=== PATIENT | male | born 1960 | race Caucasian/White ===

== ENCOUNTER → 2021-03-12 | Day surgery (SDC) | payer OTHER ==
[~2021-03-12] MED LIST: ATOR10TA60 PO; IPRATRPIUM/ALBUTEROL 0.5/2.5MG 3 ML NEBU. NEB PRN; IV RINGERS SOLUTION,LACTATED 1,000 ML IV SCH; LIDOCAINE 2% PF 5 ML VIAL. ONE; LISI20TA18 PO; MIDAZOLAM HCL PF 2 MG/2 ML VIAL. IV ONE; ONDANSETRON PF 4 MG/2 ML VIAL. IV PRN; PROPOFOL 10,000 MCG/ML (20ML) VIAL IV ONE
[2021-03-12 13:44] VITALS: BP 130/72
--- NOTE | 2021-03-16 16:13 | PATHOLOGY ---
[facility] Accession Number: [id number] . 01 Material submitted: . PART A: sigmoid colon - SIGMOID POLYP PART B: colon - DESCENDING COLON POLYP BIOPSY. Modifiers: descending PART C: rectum - RECTAL POLYP PART D: sigmoid colon - SIGMOID COLON POLYP BIOPSY . 01 Clinical history: . FAMILY HX COLON CA, COLONOSCOPY . 02 Diagnosis: A. Colonic mucosa, sigmoid polyp: - Serrated adenoma. . B. Colonic mucosa, descending colon polyp biopsy and polyp: - Hyperplastic polyps. . C. Colorectal mucosa, rectal polyp: - Tubular adenoma. . D. Colonic mucosa, sigmoid colon polyp biopsy: - Prominent mucosal fold with mucosal-associated lymphoid aggregate. . ([facility]:[place]; 03/16/2021) [facility] 03/16/2021 1350 Local . 02 Comment: There is no high-grade dysplasia or evidence of malignancy. ([facility]LGAM:[place]; 03/16/2021) . 02 Electronically signed: . Conor Jain MD, Pathologist NPI- [id number] . 01 Gross description: . A. The specimen is received in formalin, labeled "Louie Myrick, sigmoid polyp". Received is an irregular segment of brown-noguera, polypoid tissue measuring 1.3 x 1.0 x 0.9 cm in greatest dimensions. The surgical margin is inked. The specimen is sectioned into 3 pieces and entirely submitted in cassette A1. During sectioning, fragmentation has occurred. . B. The specimen is received in formalin, labeled "Myrick Louie, descending colon polyp BX and polyp". Received are multiple fragments of pale strong tissue ranging in size from 0.2-0.6 cm in maximum dimensions. The specimen is entirely submitted in cassette B1. . C. The specimen is received in formalin, labeled "Louie Myrick, rectal polyp". Received is a single segment of pale strong, polypoid tissue measuring 0.8 cm in greatest dimensions. The surgical margin is inked. The specimen is bisected and entirely submitted in cassette C1. During sectioning, fragmentation has occurred. . D. The specimen is received in formalin, labeled "Louie Myrick, sigmoid colon polyp BX". Received are 2 segments of pale strong tissue measuring 0.3 and 0.5 cm in maximum dimensions. The specimen is entirely submitted in cassette D1. ([facility]; 03/15/2021) NRI/NRI 03/15/2021 1622 Local . 02 Pathologist provided ICD-10: D12.5, K63.5, D12.8, Z86.010, Z12.11 . 02 CPT . 970416, 254093, 155492, 640706 Specimen Comment: A courtesy copy of this report has been sent to [phone] Specimen Comment: Report sent to Specimen Comment: A duplicate report has been generated due to demographic updates. Performed at: 01 [facility] [address], [place] [id number] MD Tyson Del Valle MD Phone: [phone] Performed at: 02 [facility] [address] [place], [place] [id number] MD Conor Jain MD Phone: [phone]
== END | disposition home or self-care (01) ==
LOC: SURG 10:32
PROVIDERS: ATTEND Internal Medicine Gastroenterology
DX: Z12.11 Encounter for screening for malignant neoplasm of colon (principal); D12.5 Benign neoplasm of sigmoid colon; D12.8 Benign neoplasm of rectum; K63.89 Other specified diseases of intestine; Z86.010 Personal history of colon polyps; Z87.891 Personal history of nicotine dependence; Z79.899 Other long term (current) drug therapy; Z98.890 Other specified postprocedural states; Z72.89 Other problems related to lifestyle
CPT/HCPCS: 45380; 45381; 45385; 88305; J2001; J2704; J7120

== ENCOUNTER 2021-04-16 09:52 | Emergency (ER) | payer OTHER ==
[~2021-04-16] VITALS: Ht 177.8 cm; Wt 79.0 kg
[~2021-04-16 09:52] MED LIST changes: -IPRATRPIUM/ALBUTEROL 0.5/2.5MG 3 ML NEBU. NEB PRN; -IV RINGERS SOLUTION,LACTATED 1,000 ML IV SCH; -LIDOCAINE 2% PF 5 ML VIAL. ONE; -MIDAZOLAM HCL PF 2 MG/2 ML VIAL. IV ONE; -ONDANSETRON PF 4 MG/2 ML VIAL. IV PRN; -PROPOFOL 10,000 MCG/ML (20ML) VIAL IV ONE
--- NOTE | 2021-04-16 10:01 | PHYS DOC ---
Adult General HPI HPI Patient is a 60-year-old male presenting via POV for a fall. Reports he slipped and fell on the ice suffering obvious deformity to left ankle prompting him to come in. Motor or sensory neuro function intact but reports 10 out of 10 pain with obvious bony deformity that is closed in nature. States he has history of high blood pressure which he takes medications for, no other medical issues reported. Not on any blood thinners. No prior history of any left lower extremity abnormalities or surgical intervention Review of Systems Review of Systems Fourteen body systems of review of systems have been reviewed. See HPI for pertinent positives and negative responses, other bowser all other systems are negative, non-pertinent or non-contributory Allergies Allergies Allergies Coded Allergies Type Severity Reaction Last Updated Verified No Known Drug Allergies 03/12/21 No Physical Exam Physical Exam Constitutional: Well developed, well nourished, moderate distress due to pain HENT: Normocephalic, atraumatic, bilateral external ears normal, oropharynx moist, no oral exudates, nose normal. Eyes: PERRLA, EOMI, conjunctiva normal, no discharge. Neck: Normal range of motion, no tenderness, supple, no stridor. Cardiovascular: Heart rate regular, sinus rhythm, no murmurs rubs or gallops Lungs & Thorax: Bilateral breath sounds clear to auscultation Abdomen: Bowel sounds normal, soft, no tenderness, no masses, no pulsatile masses. Nonsurgical abdomen, no peritoneal signs Skin: Warm, dry, no erythema, no rash. Back: No tenderness, no CVA tenderness. Extremities: Obvious bony abnormality with palpable and visual deformity to left ankle that appears dislocated in nature, cap refill of all distal digits less than 3 seconds, unremarkable examination of left hip, left knee with specific mention of no left posterior fibular head pain, soft tissue compartments of left stokes and left foot, no cyanosis, no clubbing. Neurologic: Alert and oriented X 3, normal motor & sensory function of entire left lower extremity, no focal deficits noted. Psychologic: Anxious affect and mood Current Patient Data Vital Signs Vital Signs Date Time Temp Pulse Resp B/P (MAP) Pulse Ox O2 Delivery O2 Flow Rate FiO2 04/16/21 10:00 18 100 Room Air Vital Signs Date Time Temp Pulse Resp B/P (MAP) Pulse Ox O2 Delivery O2 Flow Rate FiO2 04/16/21 10:00 18 100 Room Air Lab Results Current Medications Medications (Trade) Dose Ordered Sig/Matthew Route PRN Reason Start Time Stop Time Status Last Admin Dose Admin Fentanyl Citrate (Fentanyl 2ml Vial) 75 mcg 1X ONCE IVP 04/16/21 10:00 04/16/21 10:07 DC 04/16/21 10:00 Ondansetron HCl (Zofran) 4 mg 1X ONCE IVP 04/16/21 10:15 04/16/21 10:28 DC 04/16/21 10:15 Ondansetron HCl (Zofran) 4 mg STK-MED ONCE .ROUTE 04/16/21 10:13 04/16/21 10:13 DC Ketamine HCl (Ketamine) 80 mg 1X ONCE IV 04/16/21 10:30 04/16/21 10:31 DC 04/16/21 10:30 Fentanyl Citrate (Fentanyl 2ml Vial) 50 mcg 1X ONCE IVP 04/16/21 11:30 04/16/21 11:34 DC Acetaminophen/ Hydrocodone Bitart (Lortab 7.5/325) 1 tab 1X ONCE PO 04/16/21 13:00 04/16/21 13:01 DC 04/16/21 13:00 EKG EKG [] Radiology/Procedures Radiology/Procedures EXAM: 2 views of the left ankle DATE: 04/16/2021 11:38 pm INDICATION: Reason: FRACTURE AND DISLOCATION - POST REDUCTION / Spl. Instructions: / History: COMPARISON: Earlier same day FINDINGS/ IMPRESSION: 1. Improved alignment of the obliquely oriented distal fibular fracture. 2. Interval closed reduction with improved alignment of the tibial talar joint. There is mild asymmetric widening of the medial gutter. Obliquely oriented minimally displaced fracture of the posterior tibial plafond/posterior malleolus. Electronically signed by: Jaime Phillips DO (04/16/2021 11:47 AM) [id number] ////////////////////////////// EXAM: Left ankle CT without contrast. HISTORY: Fracture closed reduction. TECHNIQUE: Computed tomographic images of the left ankle were obtained without contrast. *One or more of the following individualized dose reduction techniques were utilized for this examination: 1. Automated exposure control. 2. Adjustment of the mA and/or kV according to patient size. 3. Use of iterative reconstruction technique. COMPARISON: Radiographs dated 04/16/2021. FINDINGS: There is a displaced distal fibular metadiaphyseal fracture with approximately one half of a shaft widths displacement along the fracture line. There aren't few small surrounding fracture fragments, including a 1.7 cm butterfly fracture fragment along the posterior superior aspect of the fracture line. There is a displaced fracture of the medial posterior malleolus with approximately 4 mm displacement of the main fracture fragments. There is widening of the medial ankle mortise. There is a 3 mm bone fragment within the medial ankle mortise, the donor site likely from the lateral talus. There are few additional tiny bone fragments surrounding the medial posterior malleolar fracture and overlying the distal tibiofibular joint space. There is soft tissue edema and a joint effusion. The subtalar joint is intact. There are a few small benign bone islands. There is enthesophyte at the Achilles tendon insertion. There is no foreign body. IMPRESSION: 1. Mildly displaced oblique fracture of the distal fibular metadiaphysis with small surrounding fracture fragments. 2. Mildly displaced fracture of the medial posterior malleolus with surrounding fracture fragments. 3. Widening of the medial ankle mortise and small fracture fragment within the medial ankle mortise, likely from the adjacent medial talus. 4. Left ankle effusion and soft tissue swelling. Electronically signed by: Radha Lewis MD (04/16/2021 12:23 PM) [id number] Heart Score C/O Chest Pain: No Risk Factors: Risk Factors: DM, Current or recent (<one month) smoker, HTN, HLP, family history of CAD, obesity. Risk Scores: Risk Factors: DM, Current or recent (<one month) smoker, HTN, HLP, family history of CAD, obesity. Course & Med Decision Making Course & Med Decision Making ABCs unremarkable HPI and initial physical exam obvious for closed abnormality of left lower extremity. Radiographs confirmed Colles' abnormality. On-call online marketing specialist contacted who recommended closed reduction, splinting, postprocedural radiograph and subsequent CT imaging for presurgical mapping Risks and benefits of above obtained with patient, he was amenable to plan of care. Moderate sedation occurred, joint reduced on first attempt without issues and neurovascularly intact. Postprocedural radiographs showed adequate reduction. Foot splinted with CT imaging performed Pain well controlled with provided ER intervention. I discussed need for close outpatient primary care in addition to orthopedic follow-up for definitive surgical management in outpatient setting. Strict return precautions were di scussed at length with good understanding by patient. Foot reassessed and remained intact to motor or sensory neuro function prior to ER departure Critical Care Time This patient required critical care. Due to the fact that the patient required a significant amount of one on one physician - patient contact time, ordering and review of studies, arranging urgent treatment with development of a management plan, evaluation of patients response to treatment with frequent reassessments, and discussions with other providers this patient required 35 minutes of critical care time. Critical care time was indicated due to the inherent insta bility and/or potential for instability in this patient. The critical care time that is allocated to this patient is above and beyond any time spent on any other billable procedures performed on this patient. Dragon Disclaimer Dragon Disclaimer This electronic medical record was generated, in whole or in part, using a voice recognition dictation system. Departure Departure: Impression: Primary Impression: Closed left ankle fracture Disposition: HOME / SELF CARE / HOMELESS Condition: STABLE Referrals: STEFANIA GANDHI MD (PCP) BOB DUARTE DPM Patient Instructions: Ankle Fracture Additional Instructions: You were seen for a fracture or broken bone with subsequent dislocation of the left lower extremity. We spoke with the orthopedic doctors who need to see you in the orthopedic clinic. Their information is attached to your discharge packet. As disclosed, you are able to follow-up with any other orthopedic provider you want and you were given CD images in addition to printed impressions of your diagnostic studies today. You should not use the affected body part until you follow up with orthopedics. Keep the area clean, dry, and avoid getting it wet. You should use ice, NSAIDs and/or Tylenol as primary means of pain control with prescribed opiate medications for severe/breakthrough pain, and elevation to help with swelling and pain. Return to the ED if you develop worsening pain, numbness, tingling, weakness, fever, redness, or any other new or concerning symptoms. Scripts Hydrocodone Bit/Acetaminophen (HYDROCODONE-APAP 7.5-325 ) 1 Each Tablet 1 TAB PO PRN Q6HRS PRN for PAIN, #20 TAB 0 Refills Prov: NIKO COHEN DO 04/16/21 MODERATE SEDATION ASSESSMENT RISKS/ALTERNATIVES Risks/Alternatives Risks and alternatives of this type of sedation and procedure discussed with: RISK/ALTERNATIVES DISCUSSED: Patient H & P ON CHART H & P H & P on chart and reviewed for co-morbid conditions and appropriate labs. H&P ON CHART: Yes STATUS PREG STATUS ASSESSED: Yes MEDS/ALLERGIES REVIEWED Meds/Allergies Reviewed Medications and Allergies including time and route of recently administered danette cotics and sedatives. MEDS/ALLERGIES REVIEWED: Yes ASA RATING ASA RATING: II AIRWAY ASSESSMENT Airway Assessment Airway patency, oral function limitations, presence of caps, crowns, dentures, partials, and ability to extend neck assessed. AIRWAY ASSESSMENT: Yes MALLAMPATI SCORE MALLAMPATI SCORE: I PRE-SEDATION ASSESSMENT PRE-SEDATION PHYSICAL: Yes Joint Reduction Joint Reduction : Conscious Sedation: Yes Reduction Attempts: 1 Pre-Procedure NV Exam: Yes Post-Procedure NV Exam: Yes Post Joint Reduction Film: joint reduced Progress Risks and benefits reviewed with patient and sister at bedside with all questions addressed, consent obtained Timeout performed 80 mg ketamine with subsequent administration of 40 mg of ketamine administered for moderate sedation purposes Traction to left lower extremity resulted in immediate translocation and ultimate reduction of patient's displaced left foot fracture. Formal recheck performed and fully intact neurovascularly Appropriate splint and post procedural radiographs obtained showing adequate reduction. Motor or sensory neuro function remained intact after additional assessment after sedation resolution Patient tolerated procedure well with no reported and/or observed complications NIKO COHEN DO Apr 16, 2021 10:01
[2021-04-16] MEDS ORDERED: ONDANSETRON PF 4 MG/2 ML VIAL. ONE (10:13)
[2021-04-16] MEDS ORDERED: ONDANSETRON PF 4 MG/2 ML VIAL. IVP ONE (10:15)
--- NOTE | 2021-04-16 10:28 | RAD ---
EXAM: 2 views of the left ankle DATE: 04/16/2021 10:10 AM INDICATION: Reason: fracture, deformity, fall / Spl. Instructions: / History: COMPARISON: No Prior FINDINGS/ IMPRESSION: Examination limited by suboptimal projections. 1. Oblique fracture distal fibular shaft in apex anterior angulation. 2. There is dorsal dislocation of the talus relative to the tibia with associated rotatory component . 3. No talonavicular or subtalar joint dislocation. Suspected posterior tibial plafond/posterior mall eolar fracture although evaluation limited given superimposed structures. Electronically signed by: Amos Lew MD (04/16/2021 10:26 AM) [id number]
[2021-04-16] MEDS ORDERED: KETAMINE HCL 500 MG/10 ML VIAL. IV ONE (10:30)
--- NOTE | 2021-04-16 11:50 | RAD ---
EXAM: 2 views of the left ankle DATE: 04/16/2021 11:38 pm INDICATION: Reason: FRACTURE AND DISLOCATION - POST REDUCTION / Spl. Instructions: / History: COMPARISON: Earlier same day FINDINGS/ IMPRESSION: 1. Improved alignment of the obliquely oriented distal fibular fracture. 2. Interval closed reduction with improved alignment of the tibial talar joint. There is mild asymmet justin widening of the medial gutter. Obliquely oriented minimally displaced fracture of the posterior tibial plafond/posterior malleol us. Electronically signed by: Jaime Phillips DO (04/16/2021 11:47 AM) [id number]
--- NOTE | 2021-04-16 12:25 | RAD ---
EXAM: Left ankle CT without contrast. HISTORY: Fracture closed reduction. TECHNIQUE: Computed tomographic images of the left ankle were obtained without contrast. *One or more of the following individualized dose reduction techniques were utilized for this examina tion: 1. Automated exposure control. 2. Adjustment of the mA and/or kV according to patient size. 3. Use of iterative reconstruction technique. COMPARISON: Radiographs dated 04/16/2021. FINDINGS: There is a displaced distal fibular metadiaphyseal fracture with approximately one half of a shaft widths displacement along the fracture line. There aren't few small surrounding fracture frag ments, including a 1.7 cm butterfly fracture fragment along the posterior superior aspect of the frac ture line. There is a displaced fracture of the medial posterior malleolus with approximately 4 mm di splacement of the main fracture fragments. There is widening of the medial ankle mortise. There is a 3 mm bone fragment within the medial ankle mortise, the donor site likely from the lateral talus. The re are few additional tiny bone fragments surrounding the medial posterior malleolar fracture and ove rlying the distal tibiofibular joint space. There is soft tissue edema and a joint effusion. The subt alar joint is intact. There are a few small benign bone islands. There is enthesophyte at the Wilmer s tendon insertion. There is no foreign body. IMPRESSION: 1. Mildly displaced oblique fracture of the distal fibular metadiaphysis with small surrounding fract ure fragments. 2. Mildly displaced fracture of the medial posterior malleolus with surrounding fracture fragments. 3. Widening of the medial ankle mortise and small fracture fragment within the medial ankle mortise, likely from the adjacent medial talus. 4. Left ankle effusion and soft tissue swelling. Electronically signed by: Radha Lewis MD (04/16/2021 12:23 PM) [id number]
[2021-04-16] MEDS ORDERED: HYDROcodone/APAP 7.5/325MG 1 TAB TABLET PO ONE (13:00)
[2021-04-16] MEDS ORDERED: HYDR-2765 PO (13:19)
[2021-04-16 17:30] VITALS: BP 132/52
== END 2021-04-16 13:40 | disposition home or self-care (01) ==
LOC: ER 09:52
DX: S82.832A Other fracture of upper and lower end of left fibula, initial encounter for closed fracture (principal); S82.892A Other fracture of left lower leg, initial encounter for closed fracture; I10 Essential (primary) hypertension; W00.0XXA Fall on same level due to ice and snow, initial encounter; Y93.89 Activity, other specified; Y92.89 Other specified places as the place of occurrence of the external cause; Y99.8 Other external cause status
CPT/HCPCS: 27788; 73600; 73700; 96374; 96375; 99152; 99285; J2405; J3010